=== PATIENT | female | born 1975 | race Caucasian/White ===

== ENCOUNTER → 2021-05-27 | Outpatient (CLI) | payer MEDICARE, MEDICAID ==
[~2021-05-27] MED LIST: E-Z-GAS II EFFERVESCENT PACKET (SODIUM BICARB./CITRIC ACID/SIMETHICONE) As Ordered ONE; E-Z-HD 98% w/w 340GM SUSP BTL As Ordered ONE; E-Z-PAQUE 96% w/w SUSP 176GM BTL As Ordered ONE
--- NOTE | 2021-05-27 15:59 | REP ---
INDICATION: CHOKING SENSATION. COMPARISON: None. TECHNIQUE: This procedure was performed under the direct supervision of Dr. Rabago. Images were reviewed with Dr. Rabago. Liquid barium and gas producing granules were given in the erect position as well as liquid barium in the prone oblique positions in order to perform a double contrast esophagram examination. A combination of fluoroscopy, spot films and last image hold technology was utilized. 0.5 minutes of fluoro time was utilized for this procedure. FINDINGS: A single view PA chest x-ray is submitted as a education diagnostician film. The superior mediastinal structures are midline. The heart size is within normal limits. The lungs are clear. There is an old healed 4th rib fracture on the right. 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 Note is made of degenerative disc disease in the cervical spine. In the mid esophagus there is mild narrowing due to postsurgical changes from a TE fistula repair from when the patient was a baby. Esophageal transport is otherwise prompt and efficient in there is no esophagitis stricture mucosal ring or hiatal hernia..Gastroesophageal reflux is not demonstrated on this examination. IMPRESSION: 1. There is laryngeal penetration. 2. In the mid esophagus there is mild narrowing due to postsurgical changes from a TE fistula repair from when the patient was a baby. <Electronically signed by Nithin Trevizo > 05/27/21 1517 <Electronically signed by Broderick Rabago > 05/27/21 0481
== END ==
LOC: M RAD 09:48
PROVIDERS: ATTEND Otolaryngology
DX: R09.89 Other specified symptoms and signs involving the circulatory and respiratory systems (principal)

== ENCOUNTER → 2023-02-22 | Outpatient (CLI) | payer MEDICARE, MEDICAID | LOC: M CARPUL 01-18 10:16 | PROVIDERS: ATTEND Nurse Practitioner Family | DX: R06.02 Shortness of breath (principal) ==

== ENCOUNTER → 2024-09-18 | Outpatient (CLI) | payer OTHER, MEDICAID | LOC: M PLAIMG 13:01 | PROVIDERS: ATTEND Physician Assistant | DX: R91.8 Other nonspecific abnormal finding of lung field (principal) ==

== ENCOUNTER → 2024-11-12 | Outpatient (REF) | payer MEDICARE, MEDICAID ==
[2024-11-12 17:56] LABS: HEMOGLOBIN A1c 5.6 % (4.0-6.0)
[2024-11-12 18:34] LABS: FREE T4 1.18 NG/DL (0.89-1.76); THYROID STIMULATING HORMONE 2.008 uIU/ML (0.55-4.78)
[2024-11-12 18:37] LABS: ALBUMIN 3.8 G/DL (3.2-5.2); ALKALINE PHOSPHATASE 144 U/L (35-104); ALT/SGPT 78 U/L (7.0-40); AST/SGOT 42 U/L (<34); BILIRUBIN,TOTAL 0.3 MG/DL (0.3-1.2); BLOOD UREA NITROGEN 14 MG/DL (9-23); CALCIUM LEVEL 9.6 MG/DL (8.5-10.1); CARBON DIOXIDE LEVEL 27 MMOL/L (20-31); CHLORIDE LEVEL 105 MMOL/L (98-107); CHOLESTEROL LEVEL 200 MG/DL (<200); CHOLESTEROL RISK RATIO 2.99 (<5); CREATININE FOR GFR 0.82 MG/DL (0.55-1.30); GLOMERULAR FILTRATION RATE > 60.0 (>51); GLUCOSE, FASTING 98 MG/DL (60-100); HDL CHOLESTEROL 66.8 MG/DL (>40); LDL CHOLESTEROL 102.6 MG/DL (<100); NON-HDL-C 133.2 MG/DL; POTASSIUM SERUM 5.1 MMOL/L (3.5-5.1); SODIUM LEVEL 139 MMOL/L (136-145); TOTAL PROTEIN 6.9 G/DL (5.7-8.2); TRIGLYCERIDES LEVEL 153 MG/DL (<150)
== END ==
LOC: M SFHCCLAY 10:15
PROVIDERS: ATTEND Nurse Practitioner Family
DX: F41.8 Other specified anxiety disorders (principal); J45.909 Unspecified asthma, uncomplicated; K21.9 Gastro-esophageal reflux disease without esophagitis; E78.5 Hyperlipidemia, unspecified; M17.0 Bilateral primary osteoarthritis of knee; L30.9 Dermatitis, unspecified; R25.1 Tremor, unspecified; E66.9 Obesity, unspecified; Z79.899 Other long term (current) drug therapy

== ENCOUNTER → 2025-01-04 | Outpatient (CLI) | payer MEDICARE, MEDICAID | LOC: M RAD 07:30 | PROVIDERS: ATTEND Otolaryngology | DX: J34.89 Other specified disorders of nose and nasal sinuses (principal) ==

== ENCOUNTER → 2025-01-15 | Outpatient (REF) | payer MEDICARE, MEDICAID | LOC: M LAB REF 17:22 | PROVIDERS: ATTEND Otolaryngology | DX: J34.89 Other specified disorders of nose and nasal sinuses (principal) ==

== ENCOUNTER → 2025-04-25 | Outpatient (CLI) | payer MEDICARE, MEDICAID | LOC: M RAD 08:23 | PROVIDERS: ATTEND Physician Assistant | DX: R91.8 Other nonspecific abnormal finding of lung field (principal) ==

== ENCOUNTER 2025-09-02 11:31 | Day surgery (SDC) | payer MEDICARE, MEDICAID ==
[~2025-09-02] VITALS: Ht 154.9 cm; Wt 80.9 kg
[~2025-09-02 11:31] MED LIST changes: +ATOR1TAB21 PO; +BRIN10TA4 PO; +BRIN1TAB3 PO; +CELE0.09 PO; +DICL100G10; -E-Z-GAS II EFFERVESCENT PACKET (SODIUM BICARB./CITRIC ACID/SIMETHICONE) As Ordered ONE; -E-Z-HD 98% w/w 340GM SUSP BTL As Ordered ONE; -E-Z-PAQUE 96% w/w SUSP 176GM BTL As Ordered ONE; +FLUT1BLS3 INH; +FLUTISP; +IPRA0.00; +MECL-86 PO; +MONT10TA97 PO; +OMEP40CA5 PO; +PANT40TA29 PO; +REXU1TAB2 PO
[2025-09-02] MEDS ORDERED: LIDOCAINE 2% 100 MG/5 ML SDV (FOR ANES.) As Ordered ONE (14:34)
[2025-09-02] MEDS ORDERED: ONDANSETRON 4MG/2ML VIAL As Ordered ONE (14:35)
[2025-09-02] MEDS ORDERED: dexAMETHasone 4 MG/ML 1 ML VIAL As Ordered ONE (14:35)
[2025-09-02] MEDS ORDERED: MIDAZOLAM INJ 2 MG/2 ML VIAL As Ordered ONE (15:01)
[2025-09-02] MEDS ORDERED: dexmedeTOMIDine (4 MCG/ML) 200 MCG/50 ML BTL As Ordered ONE (15:34)
[2025-09-02] MEDS: LIDOCAINE 2% JELLY 6 ML SYRINGE As Ordered ONE (15:39)
[2025-09-02] MEDS: LIDOCAINE W/EPINEPHrine 1% 20 ML VIAL As Ordered ONE (15:52)
[2025-09-02] MEDS ORDERED: ONDANSETRON 4MG/2ML VIAL IV PRN (16:05)
[2025-09-02] MEDS ORDERED: HYDROMORPHONE HCL 0.5 MG/0.5 ML SYRINGE IV PRN (16:05)
[2025-09-02 17:15] VITALS: BP 119/84; TEMP 96.9; O2SAT 99
== END 2025-09-02 17:14 | disposition home or self-care (01) ==
LOC: M SDC 11:31
PROVIDERS: ATTEND Otolaryngology
DX: J34.89 Other specified disorders of nose and nasal sinuses (principal); J45.909 Unspecified asthma, uncomplicated; E78.00 Pure hypercholesterolemia, unspecified; K21.9 Gastro-esophageal reflux disease without esophagitis; Z79.899 Other long term (current) drug therapy; Z88.8 Allergy status to other drugs, medicaments and biological substances; Z90.710 Acquired absence of both cervix and uterus
CPT/HCPCS: 30117; 88305; J1100; J2250; J2405; J3010